=== PATIENT | female | born 1940 | race Caucasian/White ===

== ENCOUNTER → 2019-09-06 | Outpatient (CLI) | payer MEDICARE, SELFPAY ==
[2019-08-30 08:38] VITALS: BMI 34.2
--- NOTE | 2019-09-07 11:10 | PFT ---
INTRODUCTION: The patient is an 78-year-old female that presents for pulmonary function studies secondary to a diagnosis of COPD. Respiratory therapy reports good patient effort. Bronchodilators were used during testing. INTERPRETATION: Forced expiration spirometry demonstrates the presence of a moderately severe large airways obstructive ventilatory defect. There was no significant response to aerosolized bronchodilators, based upon strict ATS criteria. Spirograms are of fair quality and do not plateau indicating slow emptying of the lungs. Body plus tomography was performed and reveals lung volumes to be within normal limits. Diffusing capacity by single breath CO is reduced at 53% of predicted. IMPRESSION: Moderately severe large airways obstructive ventilatory defect with symmetric reduction in diffusing capacity. There was a partial, albeit technically nonsignificant, response to aerosolized bronchodilators.
== END | disposition home or self-care (01) ==
LOC: PSN 09:36
PROVIDERS: PCP Internal Medicine; Referring Provider Internal Medicine Critical Care Medicine; Visit Provider Internal Medicine Critical Care Medicine
DX: J44.9 Chronic obstructive pulmonary disease, unspecified (principal)
CPT/HCPCS: 94060; 94726; 94729

== ENCOUNTER → 2020-04-23 | Outpatient (CLI) | payer BC, SELFPAY ==
[2020-04-23 09:41] VITALS: BMI 34.5
== END | disposition home or self-care (01) ==
LOC: LABSPEC 10:36
PROVIDERS: PCP Internal Medicine; Visit Provider Internal Medicine Critical Care Medicine
DX: J47.0 Bronchiectasis with acute lower respiratory infection (principal)
CPT/HCPCS: 87070; 87077; 87186; 87205

== ENCOUNTER 2021-08-27 13:46 | Outpatient (CLI) | payer BC, SELFPAY ==
[2021-08-27 14:00] VITALS: PULSE 106; PULSE 109; PULSE 112; PULSE 114; PULSE 115; PULSE 89; PULSE 91; O2SAT 91; O2SAT 92; O2SAT 93; O2SAT 94; O2SAT 96
--- NOTE | 2021-08-27 14:52 | WT_ITS ---
PSN 6 Minute Walk Test 6 Minute Walk Test 6 Minute Walk Test: 6 Minute Walk Test PSN:6-Minute Walk Test Start: 08/27/21 14:11 Freq: Status: Active Protocol: [id number] Document 08/27/21 14:00 [facility] (Rec: 08/27/21 14:15 [facility] [id number]) 6 Minute Walk Test Date Performed 08/27/21 Time Performed 14:00 Height 5 ft Weight: 83.007 kg Weight in Pounds 183.[address]: Dr Clemente Assistive device used: None Pre-test Oxygen Delivery Method Room Air Pulse Ox (%) 94 Pulse Rate (60-100 beats/min) 89 Dyspnea Ben Scale (0-10) 0 Exertion Ben Scale (6-20) 6 1st minute Oxygen Delivery Method Room Air Pulse Ox (%) 92 Pulse Rate (60-100 beats/min) 106 H 2nd minute Oxygen Delivery Method Room Air Pulse Ox (%) 91 Pulse Rate (60-100 beats/min) 114 H 3rd minute Oxygen Delivery Method Room Air Pulse Ox (%) 91 Pulse Rate (60-100 beats/min) 106 H Number of Rests Taken 1 4th minute Oxygen Delivery Method Room Air Pulse Ox (%) 93 Pulse Rate (60-100 beats/min) 109 H 5th minute Oxygen Delivery Method Room Air Pulse Ox (%) 93 Pulse Rate (60-100 beats/min) 112 H 6th minute Oxygen Delivery Method Room Air Pulse Ox (%) 91 Pulse Rate (60-100 beats/min) 115 H Dyspnea Ben Scale (0-10) 1 Exertion Ben Scale (6-20) 11 Post-test Oxygen Delivery Method Room Air Pulse Ox (%) 96 Pulse Rate (60-100 beats/min) 91 Full Laps Walked 6 Partial Lap, Number of Tiles Walked 0 Total Distance Walked (ft) 354 Interpretation Interpretation: Patient was noted to have a saturation of 94% at baseline. Patient did desaturate as low as 91% during ambulation, but also had a peak heart rate of 115 bpm. In total, the patient traveled only 354 feet over the course of 6 minutes on room air with no assistive devices and 1 break. These findings are consistent with a multifactorial limitation exercise tolerance. Recommendations Recommendations: No supplemental oxygen is indicated at this time, but patient will need to be followed closely given level of desaturation.
== END 2021-08-27 23:59 | disposition home or self-care (01) ==
LOC: PSN 13:48
PROVIDERS: PCP Internal Medicine; Referring Provider Internal Medicine Critical Care Medicine; Visit Provider Internal Medicine Critical Care Medicine
DX: J44.9 Chronic obstructive pulmonary disease, unspecified (principal)
CPT/HCPCS: 94060; 94618; 94726; 94729

== ENCOUNTER → 2024-06-01 | Outpatient (CLI) | payer MEDICARE, SELFPAY | END | disposition home or self-care (01) | PROVIDERS: PCP Internal Medicine; Referring Provider Nurse Practitioner Acute Care; Visit Provider Nurse Practitioner Acute Care | DX: G47.10 Hypersomnia, unspecified (principal) | CPT/HCPCS: 95810 ==